=== PATIENT | male | born 1995 | race Caucasian/White ===

== ENCOUNTER 2020-09-11 23:15 | Emergency (ER) | payer OTHER ==
[2020-09-12] MEDS ORDERED: LIDOCAINE 2% VISCOUS SOLN 15 ML UDCUP PO ONE (00:23)
[2020-09-12] MEDS ORDERED: MAG HYDROX/AL HYDROX/SIMETH SUSP 30 ML UDCUP PO ONE (00:23)
[2020-09-12] MEDS ORDERED: METOCLOPRAMIDE HCL ORAL SOLN 10 MG/10 ML UDCUP PO ONE (00:23)
--- NOTE | 2020-09-12 00:27 | ER Document Report ---
ED Medical Screen (RME) - General Stated Complaint: CHEST PAIN/ACID REFLUX - HPI Notes: 09/12/20 00:24 Rapid Medical Exam HPI: This is a 25-year-old male who presents to the ER complaining of chest pain associated with GERD. Patient says he has known history of GERD but the past week it has been daily and mostly constant. Worse at night, with associated gas and belching. Patient bought some Pepcid yesterday with minimal relief. Patient believes he had an associated panic attack while showering tonight due to reflux symptoms being so severe that he felt short of breath and some left hand numbness. This is all since resolved. Physical Exam: GENERAL: Well-appearing, well-nourished and in no acute distress. HEAD: Atraumatic, normocephalic. ENT: Moist mucous membranes. RESP: Respirations even and unlabored CV- Regular rate. NEURO: No focal neurological deficits. Moves all extremities spontaneously and on command. My involvement in this patients care was limited to a rapid initial assessment. A comprehensive ED assessment and evaluation of the patient, analysis of test results, treatment, and completion of the medical decision making process will be performed by other ER providers. Physical Exam - Vital signs Vitals: Temp Pulse Resp BP Pulse Ox 98.5 F 114 H 18 163/94 H 94 09/11/20 23:27 09/11/20 23:27 09/11/20 23:27 09/11/20 23:27 09/11/20 23:27 Course - Vital Signs Vital signs: Temp Pulse Resp BP Pulse Ox 98.5 F 114 H 18 163/94 H 94 09/11/20 23:27 09/11/20 23:27 09/11/20 23:27 09/11/20 23:27 09/11/20 23:27
--- NOTE | 2020-09-12 02:57 | ER Document Report ---
HPI - HPI Patient complains to provider of: GERD Time Seen by Provider: 09/12/20 02:32 Onset: Last week Onset/Duration: Waxing and waning Pain Level: Denies Context: Patient presents complaining of GERD symptoms in which he has a regurgitation of food and bile that occurs daily. Patient states symptoms worsened after meals. Patient does report gas and frequent belching. Patient denies any cough nausea or vomiting. Patient denies any chest discomfort. Patient states he has occasional discomfort to the left upper quadrant in which he feels gurgling symptoms to his abdomen at times. Patient does acknowledge eating foods that aggravate acid reflux. Patient is not presently on any medication to help manage his symptoms. Associated Symptoms: Other - GERD symptoms. denies: Chest pain, Nonproductive cough, Productive cough Exacerbated by: Denies Relieved by: Denies Similar symptoms previously: Yes Recently seen / treated by doctor: No - ROS ROS below otherwise negative: Yes Systems Reviewed and Negative: Yes All other systems reviewed and negative - CONSTITUTIONAL Constitutional: DENIES: Fever, Chills - RESPIRATORY Respiratory: DENIES: Trouble Breathing, Coughing - GASTROINTESTINAL Gastrointestinal: REPORTS: Abdominal Pain - Left upper quadrant. DENIES: Nausea, Patient vomiting, Diarrhea, Black / Bloody Stools - MUSCULOSKELETAL Musculoskeletal: DENIES: Back Pain - DERM Skin Color: Normal Skin Problems: None Past Medical History - General Information source: Patient - Social History Smoking Status: Current Every Day Smoker Frequency of alcohol use: 2-3 times a month Drug Abuse: None Occupation: [employer] Lives with: Family Family History: Reviewed & Not Pertinent, Other - GERD - Past Medical History Cardiac Medical History: Reports: Hx Hypertension GI Medical History: Reports: Hx Gastroesophageal Reflux Disease Surgical Hx: Negative Vertical Provider Document - CONSTITUTIONAL Agree With Documented VS: Yes Exam Limitations: No Limitations General Appearance: WD/WN, No Apparent Distress - HEENT HEENT: Atraumatic, Normocephalic - NECK Neck: Normal Inspection, Supple. negative: Lymphadenopathy-Left, Lymphadenopathy-Right - RESPIRATORY Respiratory: Breath Sounds Normal, No Respiratory Distress, Chest Non-Tender. negative: Rales, Rhonchi, Wheezing - CARDIOVASCULAR Cardiovascular: Regular Rate, Regular Rhythm, No Murmur. negative: Tachycardia - GI/ABDOMEN Gastrointestinal: Abdomen Soft, Abdomen Non-Tender, No Organomegaly, Normal Bowel Sounds - BACK Back: Normal Inspection - MUSCULOSKELETAL/EXTREMETIES Musculoskeletal/Extremeties: MAEW, FROM - NEURO Level of Consciousness: Awake, Alert, Appropriate Motor/Sensory: No Motor Deficit - DERM Integumentary: Warm, Dry, No Rash Course - Re-evaluation Re-evalutation: 09/12/20 02:54 Patient states that he feels much improved at this time. Patient feels that he was becoming anxious regarding his symptoms and does feel that his symptoms are related to acid reflux. After speaking with patient regarding diet changes he can make an lifestyle changes, patient feels reassured that his symptoms are likely due to his diet. Patient reports having symptoms primarily after meals. Patient encouraged to make lifestyle modifications and follow-up with a register of wills for further evaluation. Patient without any chest pain symptoms of cough or shortness of breath at this time. Offered patient additional testing if he was concerned about any other source for his symptoms, patient declines at this time. 09/12/20 08:38 - Vital Signs Vital signs: Temp Pulse Resp BP Pulse Ox 97.3 F 69 17 142/84 H 100 09/12/20 02:17 09/12/20 02:17 09/12/20 02:17 09/12/20 02:17 09/12/20 02:17 - Laboratory Results Critical Laboratory Results Reviewed: No Critical Results - Radiology Results Critical Radiology Results Reviewed: No Critical Results - EKG Interpretation by [facility] EKG shows normal: Sinus rhythm Rate: Tachycardia Additional EKG results interpreted by [facility]: 09/12/20 08:42 Sinus tachycardia with a rate of 100, QTc 449, no acute ischemic changes Discharge - Discharge Clinical Impression: GERD (gastroesophageal reflux disease) Qualifiers: Esophagitis presence: esophagitis presence not specified Qualified Code(s): K21.9 - Gastro-esophageal reflux disease without esophagitis Condition: Stable Disposition: HOME, SELF-CARE Instructions: Reflux Disease (GERD) ([facility]) Additional Instructions: Return immediately for any new or worsening symptoms Followup with your primary care provider, call tomorrow to make a followup appointment Follow-up with a register of wills for further evaluation Prescriptions: Sucralfate [Carafate 1 gm Tablet] 1 gm PO ACHS #30 tablet Omeprazole Magnesium [Prilosec Otc] 20 mg PO DAILY #15 tablet. Forms: Return to Work Referrals: [facility] [Provider Group] - Follow up as needed TIFFANI OTERO MD [ACTIVE STAFF] - Follow up as needed
[2020-09-12 03:12] VITALS: BP 142/80
--- NOTE | 2020-09-12 10:24 | EKG REPORT ---
SEVERITY:- OTHERWISE NORMAL ECG - SINUS TACHYCARDIA : Confirmed by: Doris Morales MD 12-Sep-2020 10:24:20
== END 2020-09-12 03:10 | disposition home or self-care (01) ==
LOC: ER 23:15
DX: K21.9 Gastro-esophageal reflux disease without esophagitis (principal); R10.12 Left upper quadrant pain; R00.0 Tachycardia, unspecified; F17.200 Nicotine dependence, unspecified, uncomplicated; I10 Essential (primary) hypertension
CPT/HCPCS: 93005; 99283; 93010; J3490